=== PATIENT | male | born 1985 | race Two or more races ===

== ENCOUNTER 2024-06-23 15:14 | Outpatient (REF) | payer BC, SELFPAY ==
[2024-06-23 16:24] VITALS: BP 145/91; PULSE 85; RESP 16; TEMP 36.6; O2SAT 98; BMI 25.5
== END 2024-06-23 15:15 | disposition home or self-care (01) ==
LOC: HO.MS 15:14
PROVIDERS: Visit Provider Ophthalmology
PROC: (CPT 67700; principal; 2024-06-23 15:10)
DX: H00.14 Chalazion left upper eyelid (principal); H00.11 Chalazion right upper eyelid
CPT/HCPCS: 67700 ×2